=== PATIENT | female | born 1975 | race Two or more races ===

== ENCOUNTER → 2024-07-20 | Outpatient (CLI) | payer BC, SELFPAY ==
[2024-07-20 09:29] LABS: Basophils % (Auto) 1 % (0-2.5); Eosinophils # (Auto) 0.3 Thou/mm3 (0.0-0.5); Eosinophils % (Auto) 4 % (0-10); Hematocrit 39.4 % (36.0-46.0); Hemoglobin 13.3 g/dL (12.0-16.0); Immature Granulocytes % (Auto) 0 % (0-0); Immature Granulocytes Auto 0.03 Thou/mm3 (0.00-0.00); Lymphocytes # (Auto) 2.3 Thou/mm3 (1.0-4.8); Lymphocytes % (Auto) 31 % (10-50); Mean Corpuscular HGB Conc 33.8 g/dl (31.0-37.0); Mean Corpuscular Hemoglobin 29.5 pg (25.0-35.0); Mean Corpuscular Volume 87 fL (80-100); Monocytes # (Auto) 0.7 Thou/mm3 (0.0-0.8); Monocytes % (Auto) 9 % (0-12); Neutrophils # (Auto) 4.2 Thou/mm3 (1.8-7.7); Neutrophils % (Auto) 56 % (37-80); Nucleated Red Blood Cell % 0 /100 WBC (0); Platelet Count 377 Thou/mm3 (140-440); RDW Standard Deviation 41.3 fL (36.4-46.3); Red Blood Count 4.51 Miln/mm3 (4.00-5.20); White Blood Count 7.6 Thou/mm3 (3.6-11.0)
[2024-07-20 09:44] LABS: Collection Type, Urine Clean Catch
[2024-07-20 09:50] LABS: Glucose Estimated Average 117 mg/dL (80-131); Hemoglobin A1C 5.7 % Hgb (4.8-6.0)
[2024-07-20 09:53] LABS: Alanine Aminotransferase 45 U/L (10-49); Albumin, Serum 4.3 gm/dL (3.5-5.0); Albumin/Globulin Ratio 1.4 (1.2-2.2); Alkaline Phosphatase 102 U/L (46-116); Anion Gap 9 (7-16); Aspartate Amino Transferase 25 U/L (0-34); BUN/Creatinine Ratio 16 Ratio (12-20); Bilirubin,Total 0.2 mg/dL (0.3-1.2); Blood Urea Nitrogen 11 mg/dL (9-23); Calcium 9.2 mg/dL (8.3-10.6); Calcium (Corrected) 9.2 mg/dL (8.5-10.1); Carbon Dioxide 22.2 mMol/L (20.0-31.0); Cardiac Risk Estimate 4.6 RATIO (3.7-5.6); Chloride 107 mMol/L (98-107); Cholesterol 193 mg/dL (132-200); Creatinine (Component) 0.7 mg/dL (0.6-1.3); Glucose 134 mg/dL (74-106); HDL Cholesterol 42 mg/dL (40-60); Osmolality,Calculated 277 (275-295); Sodium 138 mMol/L (136-145); T4 (Thyroxine) 6.7 mcg/dL (4.5-10.9); Thyroid Stimulating Hormone 1.06 uIU/mL (0.55-4.78); Total Protein 7.3 gm/dL (5.7-8.2); Triglycerides 422 mg/dL (30-150); eGFR > 60 See Note
[2024-07-20 10:07] LABS: Syphilis Nonreactive (Nonreactive)
[2024-07-20 10:26] LABS: Hepatitis B Core Antibody IgM Non Reactive (Non React); Hepatitis B Surface Antigen Non Reactive (Non React); Hepatitis C Antibody Non Reactive (Non React); Vitamin B12 678 pg/mL (211-911); Vitamin D 25 Hydroxy Total 6.8 ng/mL (7.3-40.2)
[2024-07-20 10:52] LABS: Bilirubin,Urine Negative (Negative); Blood,Urine Negative (Negative); Clarity,Urine Turbid (Clear/Hazy); Color,Urine Lt-Yellow (Lt Yel-Yel); Culture Indicated,Urine Not Indicated; Glucose, Urine Negative (Negative); Ketones,Urine Negative (Negative); Leukocyte Esterase,Urine Positive (Negative); Nitrite,Urine Negative (Negative); Protein,Urine Negative (Neg - Trace); RBC,Urine 2 /hpf (0-3); Specific Gravity,Urine 1.022 (1.001-1.035); Squamous Epithelial Cell,Urine 16 /hpf (0-5); Urobilinogen,Urine Negative mg/dL (0.0-1.0); WBC,Urine 2 /hpf (0-5)
[2024-07-20 15:22] LABS: HIV (1&2) Antibody Rapid Non-Reactive
[2024-07-23 06:55] LABS: T3,Total* 107 ng/dL (76-181)
== END | disposition home or self-care (01) ==
LOC: COPL 08:46
PROVIDERS: PCP Family Medicine; Referring Provider Registered Nurse; Visit Provider Registered Nurse
DX: Z00.00 Encounter for general adult medical examination without abnormal findings (principal); F31.81 Bipolar II disorder; F42.9 Obsessive-compulsive disorder, unspecified; F43.10 Post-traumatic stress disorder, unspecified; Z11.3 Encounter for screening for infections with a predominantly sexual mode of transmission
CPT/HCPCS: 36415; 80053; 80061; 81001; 82306; 82607; 83036; 84436; 84439; 84443; 84480; 85025; 86703; 86705; 86780; 86803; 87340

== ENCOUNTER → 2024-07-27 | Outpatient (CLI) | payer BC, SELFPAY ==
--- NOTE | 2024-07-27 09:45 | XR_ITS ---
Examination: Screening digital mammography, bilateral Computer aided detection 3-D breast Tomosynthesis, bilateral Date and time of exam: July 27, 2024 0920 hours Comparison August 15, 2020 Indication: Screening Technique: Nonmagnified MLO, CC views of the breasts to been obtained, reconstructed from 3-D Tomosynthesis images. R2 computer aided detection program utilized for evaluation of suspicious masses and/or abnormal calcifications. 3-D Tomosynthesis images obtained. Findings: The breasts are extremely dense, which limits the sensitivity of mammography Amorphous calcifications upper outer left breast No definite suspicious masses Impression: BI-RADS Category 0: Incomplete: Need additional imaging evaluation Grouped amorphous calcifications upper outer left breast, recommend follow-up magnification spot compression views of these calcifications as well as right lateral breast sonography to complete workup.
== END | disposition home or self-care (01) ==
LOC: CDIM 09:15
PROVIDERS: Referring Provider Registered Nurse; Visit Provider Registered Nurse
DX: Z12.31 Encounter for screening mammogram for malignant neoplasm of breast (principal); R92.8 Other abnormal and inconclusive findings on diagnostic imaging of breast; R92.1 Mammographic calcification found on diagnostic imaging of breast
CPT/HCPCS: 77063; 77067

== ENCOUNTER → 2024-09-02 | Outpatient (CLI) | payer BC, SELFPAY ==
[2024-09-02 08:35] LABS: Basophils % (Auto) 0 % (0-2.5); Eosinophils % (Auto) 0 % (0-10); Hematocrit 38.3 % (36.0-46.0); Immature Granulocytes % (Auto) 1 % (0-0); Immature Granulocytes Auto 0.07 Thou/mm3 (0.00-0.00); Lymphocytes # (Auto) 3.1 Thou/mm3 (1.0-4.8); Lymphocytes % (Auto) 25 % (10-50); Mean Corpuscular HGB Conc 33.9 g/dl (31.0-37.0); Mean Corpuscular Hemoglobin 30.3 pg (25.0-35.0); Mean Corpuscular Volume 89 fL (80-100); Monocytes # (Auto) 0.9 Thou/mm3 (0.0-0.8); Monocytes % (Auto) 7 % (0-12); Neutrophils # (Auto) 8.2 Thou/mm3 (1.8-7.7); Neutrophils % (Auto) 67 % (37-80); Nucleated Red Blood Cell % 0 /100 WBC (0); Platelet Count 369 Thou/mm3 (140-440); RDW Standard Deviation 41.7 fL (36.4-46.3); Red Blood Count 4.29 Miln/mm3 (4.00-5.20); White Blood Count 12.3 Thou/mm3 (3.6-11.0)
[2024-09-02 08:53] LABS: Alanine Aminotransferase 40 U/L (10-49); Albumin, Serum 4.8 gm/dL (3.5-5.0); Albumin/Globulin Ratio 1.7 (1.2-2.2); Alkaline Phosphatase 83 U/L (46-116); Anion Gap 11 (7-16); Aspartate Amino Transferase 18 U/L (0-34); BUN/Creatinine Ratio 20 Ratio (12-20); Bilirubin,Total 0.6 mg/dL (0.3-1.2); Blood Urea Nitrogen 16 mg/dL (9-23); Calcium 9.3 mg/dL (8.3-10.6); Calcium (Corrected) 9.3 mg/dL (8.5-10.1); Carbon Dioxide 24.3 mMol/L (20.0-31.0); Chloride 102 mMol/L (98-107); Creatinine (Component) 0.8 mg/dL (0.6-1.3); Globulin 2.8 gm/dL (2.3-3.5); Glucose 127 mg/dL (74-106); Osmolality,Calculated 277 (275-295); Potassium 3.8 mMol/L (3.4-5.1); Prothrombin Time 10.8 Seconds (9.0-12.2); Sodium 137 mMol/L (136-145); Total Protein 7.6 gm/dL (5.7-8.2); eGFR > 60 See Note
== END | disposition home or self-care (01) ==
LOC: COPL 07:51
PROVIDERS: PCP Family Medicine; Referring Provider Internal Medicine Gastroenterology; Visit Provider Internal Medicine Gastroenterology
DX: R10.9 Unspecified abdominal pain (principal)
CPT/HCPCS: 36415; 80053; 85025; 85610; 85730

== ENCOUNTER → 2024-09-15 | Outpatient (CLI) | payer BC, SELFPAY ==
--- NOTE | 2024-09-15 08:00 | XR_ITS ---
Examination: Breast ultrasound, unilateral, right complete Date and time of exam: September 15, 2024 0802 hours INDICATIONS: Mammogram July 27, 2024 grouped amorphous microcalcifications outer right breast Technique: Real-time johnson scale ultrasonographic imaging performed right breast including all 4 quadrants as well as nipple retroareolar and axillary region. Findings: 2:00 cyst 6 x 5 mm 7:00 nodule lobular margins 9 x 10 mm 10:00 cyst 11 x 10 mm 10:00 cyst 9 x 6 mm 10:00 cyst 8 x 10 mm 10:00 nodule lobular margins 18 x 16 mm IMPRESSION: BI-RADS Category 3: Probably benign findings Six-month follow-up right breast sonogram strongly recommended to document stability of 10:00 nodule right breast
--- NOTE | 2024-09-15 08:30 | XR_ITS ---
Examination: Diagnostic digital mammography, unilateral, left Computer aided detection 3-D breast Tomosynthesis, unilateral Date and time of exam: September 15, 2024 0825 hours INDICATIONS: Mammogram July 27, 2024 grouped microcalcifications upper outer left breast Technique: Nonmagnified MLO, CC views of the left breast have been obtained, reconstructed from 3-D Tomosynthesis images. R2 computer aided detection program utilized for evaluation of suspicious masses and/or abnormal calcifications. 3-D Tomosynthesis images obtained. Findings: The breast is heterogeneously dense, which may obscure small masses Suspicious microcalcifications are confirmed upper outer left breast Impression: BI-RADS category 4: Suspicious for malignancy Suspicious microcalcifications are confirmed upper outer left breast, biopsy is needed to exclude breast carcinoma These calcifications are amenable to stereotactic breast biopsy for diagnosis
== END | disposition home or self-care (01) ==
PROVIDERS: PCP Family Medicine; Referring Provider Registered Nurse; Visit Provider Registered Nurse
DX: R92.341 Mammographic extreme density, right breast (principal); R92.0 Mammographic microcalcification found on diagnostic imaging of breast; N63.11 Unspecified lump in the right breast, upper outer quadrant
CPT/HCPCS: 76641; 77061; 77065; G0279

== ENCOUNTER 2024-12-21 14:06 | Outpatient (AMB) | payer BC, SELFPAY ==
[2024-12-21 14:24] VITALS: BP 115/72; PULSE 77; RESP 16; TEMP 36.2; O2SAT 98
--- NOTE | 2024-12-21 14:24 | AMB.OBVISIT ---
Vital Signs 12/21/24 14:24 Weight 68.039 kg Weight Measurement Method Standing Scale BP 115/72 Blood Pressure Source Automatic Cuff Blood Pressure Location Left Upper Arm Position Sitting Respiration 16 Pulse 77 Pulse Source Monitor Temp 97.2 F Temp Source Oral Pulse Oximetry (%) 98 Oxygen Delivery Method Room Air Allergies/Home Meds Allergies & Medications Allergies No Known Allergies Allergy (Verified 12/21/24 14:25) Medication Reconciliation alprazolam 0.25 mg tablet (Xanax) 0.25 mg PO QDAY PRN Anxiety 04/04/22 [History Confirmed 12/21/24] Held on 11/05/22. Instructions: Resume on 11/06/22. aripiprazole 15 mg tablet (Abilify) 15 mg PO QDAY 04/04/22 [History Confirmed 12/21/24] zolpidem 5 mg tablet 5 mg PO HS 11/05/22 [History Confirmed 12/21/24] Held on 11/05/22. Instructions: Resume on 11/06/22. Intake Visit Data Collection New Patient or Established: Established Patient (seen at [facility] within 3 years) Reason for Visit:: OBC Seen by Clinical Staff ONLY (RN/MA): No Paper Novelty Maker Required: No Do You Feel Safe at Home: Yes Authorities Contacted: N/A PCP or OBGYN visit in last 3 months: Yes Date of Last PCP or OBGYN visit: 11/05/24 Hx Now: Yes Are you currently on any form of Control: No Pain Present Currently: No Pain Scale Used: Burns-Herrera/Numerical Pain scale:: 0 Smoking Status Smoking Status: Never smoker Questionnaires Covid-19 Vaccine Questionnaire Has patient been vacinated for Covid-19 Have you been vacinated for Covid-19: Yes PHQ-9 PHQ-2 Over the last 2 weeks, how often have you been bothered by any of the following problems? 1. Little interest or pleasure in doing things: not at all 2. Feeling down, depressed, or hopeless: not at all Total score: 0 PHQ-9 3. Trouble falling or staying asleep, or sleeping too much: Not at all 4. Feeling tired or having little energy: Not at all 5. Poor appetite or overeating: Not at all 6. Feeling bad about yourself - or that you are a failure or have let yourself or your family down: Not at all 7. Trouble concentrating on things, such as reading the newspaper or watching television: Not at all 8. Moving or speaking so slowly that other people could have noticed? - Or the opposite - being so fidgety or restless that you have been moving around a lot more than usual: not at all 9. Thoughts that you would be better off or of hurting yourself in some way: Not at all Total score: 0 If you checked off any problems, how difficult have these problems made it for you to do your work, take care of things at home, or get along with other people?: not difficult at all Source: Developed by Drs. Reddy Liang, Dejah Lubin, Konrad Parker and colleagues, with an educational daniel from [employer]. Depression screen completed yes Social History Living Situation History Housing: House Housing Other:: Patient resides at home with her and two kids. 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 Patient used Nexplanon before in the past and she liked the method a lot so she like to have 1 placed. She has a new partner and does not want a . Her last. December 20, 2024. She reports her periods are every month but they are changing in consistency, quality and amount. Patient denies social habits. Denies surgery. History of anxiety. Patient takes Xanax and she also takes medication for bipolar. Patient actively is seeing provider at [facility] Last Pap was in June and it was normal. No other CHIEF LEGAL OFFICER complaints Review of Systems Review of Systems Systems Reviewed: All systems reviewed, normal except as documented Exam General Limitations: no limitations General Appearance: alert, in no apparent distress, comfortable, cooperative, healthy appearing, well developed and well groomed Head Head exam: atraumatic, normocephalic and normal inspection Chest Chest inspection: Present normal inspection and symmetric chest wall rise Resp Respiratory exam: Present normal lung sounds bilaterally Card Cardiovascular exam: Present regular rate, normal rhythm and normal heart sounds Abdominal Abdominal exam: Present soft and normal bowel sounds Psych Psychiatric exam: Present normal affect and normal mood Office Procedures OB Clinic LOC & Office Proc's Nursing/Assessment Patient Status: Established Patient OB Clinic Nursing Assessment: Medication Reconciliation, Update PMH in EMR and Vital Signs OB Clinic Coordination of Care: Education Complex Pt/Fam, Consent,records obtained, informed consent, Lab and Imaging orders, Results/Orders obtained and Staff clarify orders Special Needs: Heart tones Established Patient Charge Established Patient Point Assignment: 115 Established Patient Point Charge: EP Level 3 (80-115) Assessment & Plan Diagnosis / Problem List (1) Encounter for initial prescription of Nexplanon: Status: Acute Plan No sex. Discussed Nexplanon insert. Reviewed method and side effects. And patient will come in as scheduled for Nexplanon insert when has been approved Additional Plan Follow Up: 2 Weeks (nexplanon insert)
== END 2024-12-21 14:43 | disposition home or self-care (01) ==
LOC: HODSOBC 14:06
PROVIDERS: Supervising Provider Advanced Practice Midwife; Visit Provider Advanced Practice Midwife
DX: Z30.017 Encounter for initial prescription of implantable subdermal contraceptive (principal)
CPT/HCPCS: 99213; G0463

== ENCOUNTER → 2024-12-31 | Outpatient (CLI) | payer BC, SELFPAY ==
[2024-12-30 16:40] LABS: Basophils # (Auto) 0.1 Thou/mm3 (0.0-0.2); Basophils % (Auto) 1 % (0-2.5); Eosinophils # (Auto) 0.3 Thou/mm3 (0.0-0.5); Eosinophils % (Auto) 2 % (0-10); Hematocrit 36.3 % (36.0-46.0); Hemoglobin 12.4 g/dL (12.0-16.0); Immature Granulocytes Auto 0.04 Thou/mm3 (0.00-0.00); Lymphocytes # (Auto) 3.1 Thou/mm3 (1.0-4.8); Lymphocytes % (Auto) 29 % (10-50); Mean Corpuscular HGB Conc 34.2 g/dl (31.0-37.0); Mean Corpuscular Hemoglobin 30.9 pg (25.0-35.0); Mean Corpuscular Volume 91 fL (80-100); Monocytes # (Auto) 0.6 Thou/mm3 (0.0-0.8); Monocytes % (Auto) 6 % (0-12); Neutrophils # (Auto) 6.6 Thou/mm3 (1.8-7.7); Neutrophils % (Auto) 62 % (37-80); Nucleated Red Blood Cell # 0.00 Thou/mm3 (0.00-0.00); Nucleated Red Blood Cell % 0 /100 WBC (0); Platelet Count 369 Thou/mm3 (140-440); RDW Standard Deviation 41.0 fL (36.4-46.3); Red Blood Count 4.01 Miln/mm3 (4.00-5.20); White Blood Count 10.7 Thou/mm3 (3.6-11.0)
[2024-12-30 16:47] LABS: HCG,Qualitative Serum Negative
[2024-12-30 16:48] LABS: INR 1.0 (0.9-1.3); Partial Thromboplastin Time 28.2 Seconds (22.0-36.0); Prothrombin Time 11.0 Seconds (9.0-12.2)
--- NOTE | 2024-12-31 08:30 | XR_ITS ---
Examination: Stereotactic guided vacuum assisted left breast biopsy with clip placement Specimen radiograph Date and time of exam:December 31, 2024 0917 hours INDICATIONS: BI-RADS 4 suspicious microcalcifications upper outer left breast on mammogram September 15, 2024 Timeout performed, documenting correct patient, order, referring physician, patient's site and reason for procedure, allergies to medications Informed consent provided. Time out performed Technique: The lesion left breast was localized with a stereotactic apparatus. Local anesthesia was obtained after prepping the skin at the entrance site and applying sterile drape Maximum sterile barrier technique. 8 core biopsies were then obtained, vacuum assisted, stereotactically guided, at the lesion site. Specimens appear adequate. Stereotactic breast marker was introduced at the lesion site Estimated blood loss 2 cc. Patient tolerated the procedure well and appeared in satisfactory and stable condition at completion of the procedure Pathology report to follow Impression: Successful stereotactic breast biopsy as described above. Specimen radiograph contains the biopsied suspicious microcalcifications.
== END | disposition home or self-care (01) ==
LOC: SIRX 01-07 07:13
PROVIDERS: Radiology Diagnostic Radiology; Referring Provider Surgery; Visit Provider Surgery
DX: D24.2 Benign neoplasm of left breast (principal); R92.0 Mammographic microcalcification found on diagnostic imaging of breast; Z01.812 Encounter for preprocedural laboratory examination
CPT/HCPCS: 19081; 36415; 84703; 85025; 85610; 85730; A4648; A4649; J3490

== ENCOUNTER 2025-01-27 09:29 | Outpatient (AMB) | payer BC, SELFPAY ==
[2025-01-27 09:41] VITALS: BP 110/70; PULSE 82; RESP 17; TEMP 36.9; O2SAT 97; BMI 27.8
--- NOTE | 2025-01-27 09:41 | AMB.GYNCLNOT ---
Vital Signs 01/27/25 09:41 Height 1.57 m Height Method Stated Weight 69.059 kg Weight Measurement Method Standing Scale BMI 27.8 BP 110/70 Blood Pressure Source Automatic Cuff Blood Pressure Location Right Upper Arm Position Sitting Respiration 17 Pulse 82 Pulse Source Monitor Temp 98.4 F Temp Source Temporal Artery Scan Pulse Oximetry (%) 97 Oxygen Delivery Method Room Air Allergies/Home Meds Allergies & Medications Allergies No Known Allergies Allergy (Verified 01/27/25 09:43) Medication Reconciliation alprazolam 0.25 mg tablet (Xanax) 0.25 mg PO QDAY PRN Anxiety 04/04/22 [History Confirmed 01/27/25] Held on 11/05/22. Instructions: Resume on 11/06/22. aripiprazole 15 mg tablet (Abilify) 15 mg PO QDAY 04/04/22 [History Confirmed 01/27/25] zolpidem 5 mg tablet 5 mg PO HS 11/05/22 [History Confirmed 01/27/25] Held on 11/05/22. Instructions: Resume on 11/06/22. 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 Menstrual regularity: irregular Flow: heavy Monthly: Yes How many days does period last: 7 Age at menarche: 13 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 1. Little interest or pleasure in doing things: not at all 2. Feeling down, depressed, or hopeless: not at all Total score: 0 PHQ-9 3. Trouble falling or staying asleep, or sleeping too much: Not at all 4. Feeling tired or having little energy: Not at all 5. Poor appetite or overeating: Not at all 6. Feeling bad about yourself - or that you are a failure or have let yourself or your family down: Not at all 7. Trouble concentrating on things, such as reading the newspaper or watching television: Not at all 8. Moving or speaking so slowly that other people could have noticed? - Or the opposite - being so fidgety or restless that you have been moving around a lot more than usual: not at all 9. Thoughts that you would be better off or of hurting yourself in some way: Not at all Total score: 0 If you checked off any problems, how difficult have these problems made it for you to do your work, take care of things at home, or get along with other people?: not difficult at all Source: Developed by Drs. Reddy Liang, Dejah Lubin, Konrad Parker and colleagues, with an educational daniel from [employer]. Depression screen completed yes Social History Living Situation History Marital Status: Lives With: Family Housing: House Housing Other:: Patient resides at home with her and two kids. Tobacco History Smoking Status: Never smoker Second Hand Smoke Exposure: No Alcohol History Alcohol Intake: Never Domestic Abuse History Do You Feel Safe at Home: Yes History of Present Illness HPI Narrative 49-year-old 2 para 2 for Nexplanon insert. Patient used Nexplanon in the past and she was happy with the method. Her last period January 17, 2025. She has periods every month. Her last sexual encounter was prior to her menses a week ago unprotected. Denies social habits. Patient had a lap claudia. Denies chronic illness. No contraindications to Nexplanon Review of Systems Review of Systems Systems Reviewed: All systems reviewed, normal except as documented Exam General Limitations: no limitations General Appearance: alert, in no apparent distress, comfortable, cooperative, healthy appearing, well developed and well groomed Head Head exam: atraumatic, normocephalic and normal inspection ENT ENT exam: Present normal exam, normal oropharynx and mucous membranes moist Chest Chest inspection: Present normal inspection and symmetric chest wall rise Resp Respiratory exam: Present normal lung sounds bilaterally Card Cardiovascular exam: Present regular rate, normal rhythm and normal heart sounds Abdominal Abdominal exam: Present soft and normal bowel sounds Results Objective Laboratory: negative preg test Office Procedures OBC Clinic LOC & Office Proc's Nursing/Assessment Patient Status: Established Patient OB Clinic Nursing Assessment: Medication Reconciliation, Update PMH in EMR and Vital Signs OB Clinic Coordination of Care: Complex Care and Chronic Disease 1-5, Education Complex Pt/Fam, Consent,records obtained, informed consent, Results/Orders obtained and Staff clarify orders Miscellaneous Interventions: Blood/Urine Collection Established Patient Charge Established Patient Point Assignment: 125 Established Patient Point Charge: EP Level 4 (120-155) In Clinic Procedures Minor Surgical Procedure: Yes Results Urine HCG Urine HCG Negative Last Edit by Briseyda Begum MA on 01/27/25 11:49 Assessment & Plan Diagnosis / Problem List (1) Encounter for initial prescription of Nexplanon: Status: Acute Plan Consented for Nexplanon insert per protocol. Discussed signs of procedure with patient. I reviewed method, side effects and effectiveness. Discussed wound care. Keep it dry for 3 days. And condoms for 2 weeks. Return in a year for Pap Additional Plan Follow Up: 1 Year (pap) Control Implant/Removal Diaphragm Fitting Diaphragm fitting: No Insertion of Contraceptive Device Ambulatory Dept Location: OB Clinic Insertion of control contraception: Yes (nexplanon) Insertion of IUD Ambulatory Dept Location: OB Clinic IUD type inserted: Other (describe) (Insertion of Nexplanon.) Procedure Notes Pre-op diagnosis general: Nexplanon insert. Post-op diagnosis procedure note: Same Consent obtained: yes-verbal and yes-written Consent comments: Timeout performed per protocol. Negative test. Betadine cleanse insert area in the left forearm. 2 cc of lidocaine1% injected at insert site. No bleeding noted. Area was cleaned with Betadine x 3. This was prior to lidocaine injected. No bleeding noted. Nexplanon capsule was inserted with applicator per protocol. Patient palpated the placed Nexplanon capsule. Along with myself. Band-Aid placed over the insert site. A pressure dressing applied. Patient tolerated the procedure rater well. There is no excessive bleeding noted.
== END 2025-01-27 10:16 | disposition home or self-care (01) ==
LOC: HODSOBC 09:29
PROVIDERS: Supervising Provider Advanced Practice Midwife; Visit Provider Advanced Practice Midwife
DX: Z30.017 Encounter for initial prescription of implantable subdermal contraceptive (principal)
CPT/HCPCS: 11981; 96372; 99214; J3490; J7301; G0463

== ENCOUNTER 2025-03-08 13:04 | Outpatient (AMB) | payer BC, SELFPAY ==
[2025-03-08 13:15] VITALS: BP 125/77; PULSE 101; RESP 20; TEMP 36.6; O2SAT 96; BMI 28.1
--- NOTE | 2025-03-08 13:15 | GYNCLNT_ITS ---
Vital Signs 03/08/25 13:15 Height 1.57 m Height Method Stated Weight 69.4 kg Weight Measurement Method Standing Scale BMI 28.1 BP 125/77 Blood Pressure Source Automatic Cuff Blood Pressure Location Left Upper Arm Position Sitting Respiration 20 Pulse 101 H Pulse Source Monitor Temp 98 F Temp Source Oral Pulse Oximetry (%) 96 Oxygen Delivery Method Room Air Allergies/Home Meds Allergies & Medications Allergies No Known Allergies Allergy (Verified 03/08/25 13:16) Medication Reconciliation alprazolam 0.25 mg tablet (Xanax) 0.25 mg PO QDAY PRN Anxiety 04/04/22 [History Confirmed 03/08/25] Held on 11/05/22. Instructions: Resume on 11/06/22. aripiprazole 15 mg tablet (Abilify) 15 mg PO QDAY 04/04/22 [History Confirmed 03/08/25] zolpidem 5 mg tablet 5 mg PO HS 11/05/22 [History Confirmed 03/08/25] Held on 11/05/22. Instructions: Resume on 11/06/22. Intake Visit Data Collection New Patient or Established: Established Patient (seen at [facility] within 3 years) Reason for Visit:: NEXPLANNON INSERTION FOLLOW UP Seen by Clinical Staff ONLY (RN/MA): No Quality Control Lab Tech Required: No Do You Feel Safe at Home: Yes Authorities Contacted: N/A PCP or OBGYN visit in last 3 months: Yes Hx Now: No Are you currently on any form of Control: Yes Pain Present Currently: No Pain Scale Used: Burns-Herrera/Numerical Pain scale:: 0 Smoking Status Smoking Status: Never smoker Immunizations Flu Vaccine in the Last 12 Months: Yes Date of most recent flu vaccination: 01/06/25 Flu Vaccine Exclusion Criteria: Already 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 Menstrual regularity: regular Flow: normal Monthly: Yes How many days does period last: 7 Age at menarche: 13 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 1. Little interest or pleasure in doing things: not at all 2. Feeling down, depressed, or hopeless: not at all Total score: 0 PHQ-9 3. Trouble falling or staying asleep, or sleeping too much: Not at all 4. Feeling tired or having little energy: Not at all 5. Poor appetite or overeating: Not at all 6. Feeling bad about yourself - or that you are a failure or have let yourself or your family down: Not at all 7. Trouble concentrating on things, such as reading the newspaper or watching television: Not at all 8. Moving or speaking so slowly that other people could have noticed? - Or the opposite - being so fidgety or restless that you have been moving around a lot more than usual: not at all 9. Thoughts that you would be better off or of hurting yourself in some way: Not at all Total score: 0 Source: Developed by Drs. Reddy Liang, Dejah Lubin, Konrad Parker and colleagues, with an educational daniel from [employer]. Depression screen completed yes Social History Living Situation History Lives With: Family Housing: House Housing Other:: Patient resides at home with her and two kids. Tobacco History Smoking Status: Never smoker Second Hand Smoke Exposure: No Alcohol History Alcohol Intake: Never Domestic Abuse History Do You Feel Safe at Home: Yes History of Present Illness HPI Narrative 49-year-old 2 para 2 for Nexplanon follow-up. Patient had Nexplanon placed December 21, 2024. She previously used Nexplanon in the past without problems. She had her last. January 20. And she reports that she is spotting some now. Initially her arm with the Nexplanon was placed had her as an a pulling pain. Now she does not feel any discomfort at all. Denies signs symptoms of infection. Patient denies social habits. Denies surgery. Denies comfortable Exam Narrative Physical exam: Nexplanon was placed in mid forearm/left side. Site is intact. Nexplanon capsule easily palpated. No signs of infection. No signs or complaints of pain on palpation General Limitations: no limitations General Appearance: alert, in no apparent distress, comfortable, cooperative, healthy appearing, well developed and well groomed Chest Chest inspection: Present normal inspection and symmetric chest wall rise Resp Respiratory exam: Present normal lung sounds bilaterally Card Cardiovascular exam: Present regular rate, normal rhythm and normal heart sounds Abdominal Abdominal exam: Present soft and normal bowel sounds Office Procedures OBC Clinic LOC & Office Proc's Nursing/Assessment Patient Status: Established Patient OB Clinic Nursing Assessment: Medication Reconciliation, Update PMH in EMR and Vital Signs OB Clinic Coordination of Care: Complex Care and Chronic Disease 1-5, Consent,records obtained, informed consent, Education Simp Pt/Fam, 1 Ins Authorization, Lab and Imaging orders, Results/Orders obtained and Staff clarify orders Established Patient Charge Established Patient Point Assignment: 120 Established Patient Point Charge: EP Level 4 (120-155) Assessment & Plan Diagnosis / Problem List (1) Encounter for surveillance of Nexplanon subdermal contraceptive: Status: Acute Plan Review method and side effects. Condoms as needed. I reviewed effects of Nexplanon menses and weight gain. And also headaches. Return for Pap or as needed Additional Plan Follow Up: 3 Years (nexplanon removal)
== END 2025-03-08 14:06 | disposition home or self-care (01) ==
LOC: HODSOBC 13:04
PROVIDERS: Supervising Provider Advanced Practice Midwife; Visit Provider Advanced Practice Midwife
DX: Z30.46 Encounter for surveillance of implantable subdermal contraceptive (principal)
CPT/HCPCS: 99214; G0463